=== PATIENT | male | born 1985 | race Caucasian/White ===

== ENCOUNTER 2017-07-04 20:46 | Emergency (ER) | payer BC ==
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
== END 2017-07-04 22:15 | disposition home or self-care (01) ==
LOC: SCSER 20:46
DX: S82.452A Displaced comminuted fracture of shaft of left fibula, initial encounter for closed fracture (principal); S93.402A Sprain of unspecified ligament of left ankle, initial encounter; Z79.899 Other long term (current) drug therapy; X58.XXXA Exposure to other specified factors, initial encounter; Y93.75 Activity, martial arts